=== PATIENT | female | born 1980 | race Caucasian/White ===

== ENCOUNTER 2018-12-20 09:09 | Emergency (ER) | payer OTHER, MEDICAID ==
[~2018-12-20] VITALS: Ht 157.5 cm; Wt 113.4 kg
[~2018-12-20 09:09] MED LIST: ANTIBIOTIC; CIPRO250 M1 PO; CIPROFLOXACIN500 M1 PO; DIFLUCAN150 M1 PO; DIFLUCAN150 MG PO; DOXYCYCLINE 10100 MG PO; FLAGYL500 MG PO; IBUPROFEN 800800 M1 PO; LORTAB 5 MG/5001 TA1 PO; NOHOMEMEDICATIONS; NORCO 5-325 TA1 EACH PO; PHENERGAN 25 MG25 M1 PO
[2018-12-20 10:40] VITALS: BP 142/84
== END 2018-12-20 10:43 | disposition short-term general hospital (02) ==
LOC: M.ERS 09:09
DX: S02.19XA Other fracture of base of skull, initial encounter for closed fracture (principal); S01.01XA Laceration without foreign body of scalp, initial encounter; F17.210 Nicotine dependence, cigarettes, uncomplicated; Z98.890 Other specified postprocedural states; Z88.2 Allergy status to sulfonamides; Y08.89XA Assault by other specified means, initial encounter; Y93.89 Activity, other specified; Y92.89 Other specified places as the place of occurrence of the external cause; Y99.8 Other external cause status

== ENCOUNTER 2021-11-12 14:08 | Emergency (ER) | payer OTHER, MEDICAID ==
[~2021-11-12] VITALS: Ht 157.5 cm; Wt 108.9 kg
[2021-11-12 16:22] LABS: HEMATOCRIT 42.8 % (37.0-47.0); HEMOGLOBIN 14.9 gm/dL (12.0-15.0); MCH 29.5 pg (26.0-34.0); MCHC 34.8 g/dL (28.0-37.0); MCV 84.7 fL (80.0-100.0); RBC 5.06 mil/uL (4.20-5.00); RDW-CV 13.6 % (10.5-14.5); WBC 9.9 thou/uL (4.0-11.0)
[2021-11-12 16:30] LABS: CREATININE 0.6 mg/dL (0.6-1.3); POTASSIUM 4.2 mmol/L (3.5-5.1)
[2021-11-12] MEDS ORDERED: NORCO5 PO (17:38)
[2021-11-12 17:50] VITALS: BP 136/85
== END 2021-11-12 17:50 | disposition home or self-care (01) ==
LOC: M.ERS 14:08
PROVIDERS: Physician Assistant
DX: K64.4 Residual hemorrhoidal skin tags (principal); K59.00 Constipation, unspecified; F17.210 Nicotine dependence, cigarettes, uncomplicated; Z98.51 Tubal ligation status; Z88.2 Allergy status to sulfonamides